=== PATIENT | female | born 1960 | race Two or more races ===

== ENCOUNTER 2019-01-04 13:04 | Emergency (ER) | payer OTHER ==
[~2019-01-04] VITALS: Ht 162.6 cm; Wt 73.5 kg
[2019-01-04] MEDS ORDERED: LEVOTHYROXINE25 MCG (13:51)
== END 2019-01-04 19:38 | disposition home or self-care (01) ==
LOC: ER 13:04
DX: G44.209 Tension-type headache, unspecified, not intractable (principal)